=== PATIENT | male | born 1960 ===

== ENCOUNTER 2018-04-21 20:27 | Emergency (ER) | payer OTHER ==
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
== END 2018-04-21 20:40 | disposition expired ==
LOC: EDBD 20:27
DX: I46.9 Cardiac arrest, cause unspecified (principal); V03.10XA Pedestrian on foot injured in collision with car, pick-up truck or van in traffic accident, initial encounter; Y92.410 Unspecified street and highway as the place of occurrence of the external cause; Y99.8 Other external cause status; Y93.89 Activity, other specified
CPT/HCPCS: L0120